=== PATIENT | female | born 1945 | race Caucasian/White ===

== ENCOUNTER 2019-05-22 10:15 | Observation (INO) ==
[2019-05-22 11:12] LABS: BUN/Creatinine Ratio 13 (6-26); Blood Urea Nitrogen 11 mg/dL (8-23); Calcium 8.9 mg/dL (8.6-10.3); Carbon Dioxide 28 mEq/L (23-29); Chloride 105 mEq/L (98-107); Glucose 122 mg/dL (70-105); Osmolality,Calculated 291 (280-300); Potassium 3.9 mEq/L (3.5-5.1); Sodium 140 mEq/L (136-145); eGFR For African Americans > 60 (> 60); eGFR For Non-African Americans > 60 (> 60)
[2019-05-22 11:13] LABS: Troponin I < 0.03 ng/mL (< 0.04)
[2019-05-22 11:24] LABS: Basophils # 0.1 K/mcL (0.0-0.2); Basophils % 0.4 %; Eosinophils # 0.1 K/mcL (0.0-0.6); Eosinophils % 0.6 %; Hematocrit 44.7 % (35.3-44.9); Hemoglobin 14.6 g/dL (11.5-15.4); Immature Granulocytes % 0.4 % (0-4); Lymphocytes # 1.1 K/mcL (0.6-4.6); Lymphocytes % 8.3 %; Mean Corpuscular HGB Conc 32.7 g/dL (31.6-35.5); Mean Corpuscular Hemoglobin 30.4 pg (28.0-33.3); Mean Corpuscular Volume 93.1 fL (83.0-100.0); Mean Platelet Volume 9.1 fL (9.4-12.4); Monocytes # 0.6 K/mcL (0.0-1.3); Monocytes % 4.5 %; Neutrophils # 11.5 K/mcL (1.6-8.9); Platelet Count 267 K/mcL (140-400); Red Cell Distribution Width 12.4 % (11.5-14.5); Segmented Neutrophils % 85.8 %; White Blood Count 13.4 K/mcL (4.3-11.1)
--- NOTE | 2019-05-22 11:36 | Emergency Department Note ---
Disposition Clinical Impression: Normal pressure hydrocephalus Disposition: Admitted As Inpatient Condition: Good Referrals: Gerald Peralta MD [Primary Care Provider] - Forms: ED Satisfaction Letter Time of Disposition: 16:04 Dizziness HPI - General Chief Complaint: ED Dizziness Stated Complaint: nausea vomiting Time Seen by Provider: 05/22/19 10:18 Source: patient, EMS Mode of arrival: EMS Limitations: no limitations Nursing Notes Reviewed: Yes Vital Signs Reviewed: Yes - History of Present Illness HPI Narrative: 73-year-old female with a past medical history of intermittent dizziness when she looks upward. Today she developed dizziness after she got up to go to the bathroom at 6 AM. She notes that today's episode of dizziness was different than her normal dizziness as normally she is only dizzy when she looks upward so she tries to avoid looking upward. Patient states that she became very nauseated all and decided that she should call the squad. Patient tried to take Phenergan and her thyroid medication but vomited both of these medications. Patient was given Zofran by squad which she states relieved her nausea. She states that any movement whatsoever exacerbates her dizziness. When asked if this is a lightheadedness or a room spinning dizziness she states that she simply feels like she will fall down. - Related Data Home Medications Medication Instructions Recorded Confirmed Cholecalciferol (D-3) [Vitamin D] 5,000 unit PO DAILY 10/18/16 05/22/19 Levothyroxine [Synthroid] 88 mcg PO DAILY 10/18/16 05/22/19 Omeprazole [PriLOSEC] 40 mg PO DAILY 10/18/16 05/22/19 SUMAtriptan succinate [Imitrex] 25 mg PO DAILY PRN 10/18/16 05/22/19 Meclizine 25 mg PO PRN PRN 05/22/19 05/22/19 Allergies Allergy/AdvReac Type Severity Reaction Status Date / Time influenza virus vaccine, Allergy See Verified 10/19/17 10:07 specific Comments Rsdnrew-Arn-Iij Reductase Allergy See Verified 10/19/17 10:07 Inhibitor Comments [Statins] Review of Systems: In addition to that documented in the HPI above, the additional ROS was obtained: Constitutional: Denies fevers or chills Eyes: Denies vision changes ENMT: Denies sore throat CV: Denies chest pain Resp: Denies SOB GI: Reports nausea and 1 episode of vomiting : Denies painful urination MSK: Denies recent trauma Skin: Denies new rashes Neuro: Reports dizziness different than normal dizziness Past Medical History - Past Medical History Attestation: Yes The following information was validated with the patient. Medical history: Reports: arthritis, GERD, hyperlipidemia, migraine, thyroid disease Surgical history: Reports: appendectomy, cataract Psychiatric history: Reports: no psych history - Social History Smoking Status: Never smoker Smokeless Tobacco Status: No Alcohol use: Reports: none Drug use: Reports: none Physical Exam General: A&O x 3. No acute distress. Well developed, well nourished. Head: atraumatic, normocephalic. ENT: No conjunctival injection, no scleral icterus. PERRLA. EOMI. Oropharynx non- erythematous. mucous membranes moist. Neuro: No focal deficits, no speech deficit, no facial droop, mentating well. BUE/BLE Str 5/5. Axel UE/LE sensation intact. CN II-XII intact. Cerebellar testing with eeawsg-cb-hxky and qkvh-bl-quim intact. HINTS exam showed mild correction of right eye with test of skew. Other components of HINTS exam were negative. Pulm: Lungs CTAB A/P. No wheezes, rales, ronchi. Cardio: RRR no m/r/g. Chest not tender to palpation. Abd: Soft, non-distended. Normoactive bowel sounds. Non-tender to palpation. No guarding. Non rigid. Extremities: Radial pulses 2+ axel, dorsalis pedis/posterior tibialis 2+ axel. No LE edema. No cyanosis, clubbing. Skin: warm, dry, intact. No rashes. Psych: Appropriate mood and affect. Answers questions appropriately. Cooperative with exam. - General Limitations: no limitations General appearance: alert, in no apparent distress Course Vital Signs Temperature 98.4 F 05/22/19 10:19 Pulse Rate 90 05/22/19 10:19 Respiratory Rate 20 05/22/19 10:19 Blood Pressure 168/88 05/22/19 10:19 O2 Sat by Pulse Oximetry 97 05/22/19 10:19 Temperature 98.4 F 05/22/19 10:19 Pulse Rate 92 05/22/19 15:16 Respiratory Rate 18 05/22/19 15:16 Blood Pressure 143/79 05/22/19 15:16 O2 Sat by Pulse Oximetry 96 05/22/19 15:16 Oxygen Delivery Oxygen Delivery Room Air Dizziness - MDM Narrative Medical decision making narrative: 73-year-old female with a past medical history of vertigo that presents for exacerbation of vertigo that started this morning when she got up to go to the bathroom. Concern for possible posterior infarction. Last known well is last evening before she went to bed. Patient's neurologic exam is nonfocal with the exception of mild findings with test of skew on his exam in the right eye. We will obtain head CT to rule out bleeding and then MRI. MRI showed findings consistent with normal pressure hydrocephalus. Patient continued to have nausea, she was given a dose of Phenergan. Neurology will be called. I spoke with Epi Dawkins from neurology who was made aware of the patient and stated that they will see her as an inpatient. Patient was admitted to the hospitalist Dr. Echeverria who agreed to accept the patient to his service. Results of the workup including any imaging and/or labwork was shared with the p atient at bedside. Patient was given an opportunity to ask questions at bedside and all of their concerns were addressed. Patient verbalized understanding and agreement with plan of care. Pt remained stable while in the department. - Medical Records Medical records reviewed: Yes I reviewed the patient's medical records. - Lab Data Lab results reviewed: Yes I reviewed the patient's lab results. Result diagrams: 05/22/19 10:41 05/22/19 10:41 Lab Results 05/22/19 05/22/19 05/22/19 Range/Units 10:41 10:41 10:41 WBC 13.4 H (4.3-11.1) K/mcL RBC 4.80 (3.82-4.97) M/mcL Hgb 14.6 (11.5-15.4) g/dL Hct 44.7 (35.3-44.9) % MCV 93.1 (83.0-100.0) fL MCH 30.4 (28.0-33.3) pg MCHC 32.7 (31.6-35.5) g/dL RDW 12.4 (11.5-14.5) % Plt Count 267 (140-400) K/mcL MPV 9.1 L (9.4-12.4) fL Immature Gran % 0.4 (0-4) % Seg Neutrophils % 85.8 % Lymphocytes % 8.3 % Monocytes % 4.5 % Eosinophils % 0.6 % Basophils % 0.4 % Neutrophils # 11.5 H (1.6-8.9) K/mcL Lymphocytes # 1.1 (0.6-4.6) K/mcL Monocytes # 0.6 (0.0-1.3) K/mcL Eosinophils # 0.1 (0.0-0.6) K/mcL Basophils # 0.1 (0.0-0.2) K/mcL Sodium 140 (136-145) mEq/L Potassium 3.9 (3.5-5.1) mEq/L Chloride 105 (98-107) mEq/L Carbon Dioxide 28 (23-29) mEq/L BUN 11 (8-23) mg/dL Creatinine 0.83 (0.60-1.20) mg/dL Est GFR ( Amer) > 60 (> 60) Est GFR (Non-Af Amer) > 60 (> 60) BUN/Creatinine Ratio 13 (6-26) Glucose 122 H (70-105) mg/dL Calculated Osmolality 291 (280-300) Calcium 8.9 (8.6-10.3) mg/dL Troponin I < 0.03 (< 0.04) ng/mL TSH 1.837 (0.340-5.600) mcIU/mL Urine Color (Yellow) Urine Clarity (Clear) Urine pH (5.0-8.0) pH Units Ur Specific [place] (1.010-1.025) Urine Protein (Neg-Trace) mg/dL Urine Glucose (UA) (Normal) mg/dL Urine Ketones (Negative) mg/dL Urine Blood (Negative) Urine Nitrite (Negative) Urine Bilirubin (Negative) Urine Urobilinogen (Normal) mg/dL Ur Leukocyte Esterase (Negative) Urine Microscopic RBC (0-3) per hpf Urine Microscopic WBC (0-3) per hpf Ur Squamous Epith Cells (None-Few) per lpf Urine Bacteria (None-Few) per hpf Hyaline Casts (None-Few) per lpf Ur Culture Indicated? (NO) 05/22/19 Range/Units 11:34 WBC (4.3-11.1) K/mcL RBC (3.82-4.97) M/mcL Hgb (11.5-15.4) g/dL Hct (35.3-44.9) % MCV (83.0-100.0) fL MCH (28.0-33.3) pg MCHC (31.6-35.5) g/dL RDW (11.5-14.5) % Plt Count (140-400) K/mcL MPV (9.4-12.4) fL Immature Gran % (0-4) % Seg Neutrophils % % Lymphocytes % % Monocytes % % Eosinophils % % Basophils % % Neutrophils # (1.6-8.9) K/mcL Lymphocytes # (0.6-4.6) K/mcL Monocytes # (0.0-1.3) K/mcL Eosinophils # (0.0-0.6) K/mcL Basophils # (0.0-0.2) K/mcL Sodium (136-145) mEq/L Potassium (3.5-5.1) mEq/L Chloride (98-107) mEq/L Carbon Dioxide (23-29) mEq/L BUN (8-23) mg/dL Creatinine (0.60-1.20) mg/dL Est GFR ( Amer) (> 60) Est GFR (Non-Af Amer) (> 60) BUN/Creatinine Ratio (6-26) Glucose (70-105) mg/dL Calculated Osmolality (280-300) Calcium (8.6-10.3) mg/dL Troponin I (< 0.04) ng/mL TSH (0.340-5.600) mcIU/mL Urine Color Yellow (Yellow) Urine Clarity Clear (Clear) Urine pH 7.5 (5.0-8.0) pH Units Ur Specific [place] 1.016 (1.010-1.025) Urine Protein 30 H (Neg-Trace) mg/dL Urine Glucose (UA) Normal (Normal) mg/dL Urine Ketones Negative (Negative) mg/dL Urine Blood Negative (Negative) Urine Nitrite Negative (Negative) Urine Bilirubin Negative (Negative) Urine Urobilinogen Normal (Normal) mg/dL Ur Leukocyte Esterase Trace H (Negative) Urine Microscopic RBC 3-5 H (0-3) per hpf Urine Microscopic WBC 3-5 H (0-3) per hpf Ur Squamous Epith Cells Many H (None-Few) per lpf Urine Bacteria None Seen (None-Few) per hpf Hyaline Casts None Seen (None-Few) per lpf Ur Culture Indicated? YES A (NO) - Radiology Data Radiology results reviewed: Yes I reviewed the patient's radiology results. Head CT 05/22/19 10:32 IMPRESSION: 1. Parenchymal volume loss and sequela of moderate chronic microvascular ischemic changes. 2. Ventriculomegaly which is out of proportion to the degree of brain parenchymal volume loss, raise the possibility of normal pressure hydrocephalus. D/ / Sandi Bowling MD / Sandi Bowling MD Interpreting Provider: Sandi Bowling MD Brain MRI 05/22/19 11:41 IMPRESSION: 1. No acute intracranial abnormality. 2. Moderate chronic white matter microvascular ischemic changes. 3. Ventriculomegaly disproportionate to the degree of parenchymal volume loss as can be seen in the setting of normal pressure hydrocephalus. D/ / Connor Leggett / Connor Leggett Interpreting Provider: Connor Leggett - EKG Data EKG attestation: Yes I reviewed and interpreted this EKG. EKG results narrative: Heart rate 74, rhythm sinus, axis normal. DC 206 and prolonged, QRS 96, QTc 456. Low voltage in precordial leads. No ST segment elevation or depression. No old EKG available for comparison.
[2019-05-22] MEDS ORDERED: Scopolamine Patch 1.5 MG PATCH.TD72 TD ONE (11:41)
[2019-05-22] MEDS ORDERED: *HR* LORazepam 2 MG/ML VIAL IVP ONE (11:41)
[2019-05-22 11:49] LABS: Bilirubin,Urine Negative (Negative); Blood,Urine Negative (Negative); Clarity,Urine Clear (Clear); Color,Urine Yellow (Yellow); Glucose,Urine (UA) Normal (Normal); Ketones,Urine Negative (Negative); Leukocyte Esterase,Urine Trace (Negative); Nitrite,Urine Negative (Negative); PH,Urine 7.5 pH Units (5.0-8.0); Protein,Urine 30 mg/dL (Neg-Trace); Specific Gravity,Urine 1.016 (1.010-1.025); Urobilinogen,Urine Normal (Normal)
[2019-05-22 11:53] LABS: Bacteria,Urine None Seen per hpf (None-Few); Hyaline Casts,Urine None Seen per lpf (None-Few); Squamous Epithelial Cell,Urine Many per lpf (None-Few)
[2019-05-22] MEDS ORDERED: *HR* Promethazine 25 MG/ML VIAL IVP ONE (13:38)
--- NOTE | 2019-05-22 15:18 | Emergency Department Note ---
Disposition Clinical Impression: Normal pressure hydrocephalus Disposition: Admitted As Inpatient Condition: Good Referrals: Gerald Peralta MD [Primary Care Provider] - Forms: ED Satisfaction Letter Time of Disposition: 15:18 General Adult HPI - General Chief complaint: ED Dizziness Stated complaint: nausea vomiting Time Seen by Provider: 05/22/19 10:18 Source: patient, EMS Mode of arrival: EMS Limitations: no limitations - History of Present Illness Pain Scale: 0 - Related Data Home Medications Medication Instructions Recorded Confirmed Cholecalciferol (D-3) [Vitamin D] 5,000 unit PO DAILY 10/18/16 05/22/19 Levothyroxine [Synthroid] 88 mcg PO DAILY 10/18/16 05/22/19 Omeprazole [PriLOSEC] 40 mg PO DAILY 10/18/16 05/22/19 SUMAtriptan succinate [Imitrex] 25 mg PO DAILY PRN 10/18/16 05/22/19 Meclizine 25 mg PO PRN PRN 05/22/19 05/22/19 Allergies Allergy/AdvReac Type Severity Reaction Status Date / Time influenza virus vaccine, Allergy See Verified 10/19/17 10:07 specific Comments Hqkjqzm-Npj-Wcr Reductase Allergy See Verified 10/19/17 10:07 Inhibitor Comments [Statins] Past Medical History - Past Medical History Medical history: Reports: arthritis, GERD, hyperlipidemia, migraine, thyroid disease Surgical history: Reports: appendectomy, cataract Psychiatric history: Reports: no psych history - Social History Smoking Status: Never smoker Smokeless Tobacco Status: No Alcohol use: Reports: none Drug use: Reports: none Physical Exam - General Limitations: no limitations General appearance: alert, in no apparent distress Course Vital Signs Temperature 98.4 F 05/22/19 10:19 Pulse Rate 90 05/22/19 10:19 Respiratory Rate 20 05/22/19 10:19 Blood Pressure 168/88 05/22/19 10:19 O2 Sat by Pulse Oximetry 97 05/22/19 10:19 Temperature 98.4 F 05/22/19 10:19 Pulse Rate 92 05/22/19 15:16 Respiratory Rate 18 05/22/19 15:16 Blood Pressure 143/79 05/22/19 15:16 O2 Sat by Pulse Oximetry 96 05/22/19 15:16 Oxygen Delivery Oxygen Delivery Room Air Medical Decision Making - Lab Data Result diagrams: 05/22/19 10:41 05/22/19 10:41 Lab Results 05/22/19 05/22/19 05/22/19 Range/Units 10:41 10:41 10:41 WBC 13.4 H (4.3-11.1) K/mcL RBC 4.80 (3.82-4.97) M/mcL Hgb 14.6 (11.5-15.4) g/dL Hct 44.7 (35.3-44.9) % MCV 93.1 (83.0-100.0) fL MCH 30.4 (28.0-33.3) pg MCHC 32.7 (31.6-35.5) g/dL RDW 12.4 (11.5-14.5) % Plt Count 267 (140-400) K/mcL MPV 9.1 L (9.4-12.4) fL Immature Gran % 0.4 (0-4) % Seg Neutrophils % 85.8 % Lymphocytes % 8.3 % Monocytes % 4.5 % Eosinophils % 0.6 % Basophils % 0.4 % Neutrophils # 11.5 H (1.6-8.9) K/mcL Lymphocytes # 1.1 (0.6-4.6) K/mcL Monocytes # 0.6 (0.0-1.3) K/mcL Eosinophils # 0.1 (0.0-0.6) K/mcL Basophils # 0.1 (0.0-0.2) K/mcL Sodium 140 (136-145) mEq/L Potassium 3.9 (3.5-5.1) mEq/L Chloride 105 (98-107) mEq/L Carbon Dioxide 28 (23-29) mEq/L BUN 11 (8-23) mg/dL Creatinine 0.83 (0.60-1.20) mg/dL Est GFR ( Amer) > 60 (> 60) Est GFR (Non-Af Amer) > 60 (> 60) BUN/Creatinine Ratio 13 (6-26) Glucose 122 H (70-105) mg/dL Calculated Osmolality 291 (280-300) Calcium 8.9 (8.6-10.3) mg/dL Troponin I < 0.03 (< 0.04) ng/mL TSH 1.837 (0.340-5.600) mcIU/mL Urine Color (Yellow) Urine Clarity (Clear) Urine pH (5.0-8.0) pH Units Ur Specific [place] (1.010-1.025) Urine Protein (Neg-Trace) mg/dL Urine Glucose (UA) (Normal) mg/dL Urine Ketones (Negative) mg/dL Urine Blood (Negative) Urine Nitrite (Negative) Urine Bilirubin (Negative) Urine Urobilinogen (Normal) mg/dL Ur Leukocyte Esterase (Negative) Urine Microscopic RBC (0-3) per hpf Urine Microscopic WBC (0-3) per hpf Ur Squamous Epith Cells (None-Few) per lpf Urine Bacteria (None-Few) per hpf Hyaline Casts (None-Few) per lpf Ur Culture Indicated? (NO) 05/22/19 Range/Units 11:34 WBC (4.3-11.1) K/mcL RBC (3.82-4.97) M/mcL Hgb (11.5-15.4) g/dL Hct (35.3-44.9) % MCV (83.0-100.0) fL MCH (28.0-33.3) pg MCHC (31.6-35.5) g/dL RDW (11.5-14.5) % Plt Count (140-400) K/mcL MPV (9.4-12.4) fL Immature Gran % (0-4) % Seg Neutrophils % % Lymphocytes % % Monocytes % % Eosinophils % % Basophils % % Neutrophils # (1.6-8.9) K/mcL Lymphocytes # (0.6-4.6) K/mcL Monocytes # (0.0-1.3) K/mcL Eosinophils # (0.0-0.6) K/mcL Basophils # (0.0-0.2) K/mcL Sodium (136-145) mEq/L Potassium (3.5-5.1) mEq/L Chloride (98-107) mEq/L Carbon Dioxide (23-29) mEq/L BUN (8-23) mg/dL Creatinine (0.60-1.20) mg/dL Est GFR ( Amer) (> 60) Est GFR (Non-Af Amer) (> 60) BUN/Creatinine Ratio (6-26) Glucose (70-105) mg/dL Calculated Osmolality (280-300) Calcium (8.6-10.3) mg/dL Troponin I (< 0.04) ng/mL TSH (0.340-5.600) mcIU/mL Urine Color Yellow (Yellow) Urine Clarity Clear (Clear) Urine pH 7.5 (5.0-8.0) pH Units Ur Specific [place] 1.016 (1.010-1.025) Urine Protein 30 H (Neg-Trace) mg/dL Urine Glucose (UA) Normal (Normal) mg/dL Urine Ketones Negative (Negative) mg/dL Urine Blood Negative (Negative) Urine Nitrite Negative (Negative) Urine Bilirubin Negative (Negative) Urine Urobilinogen Normal (Normal) mg/dL Ur Leukocyte Esterase Trace H (Negative) Urine Microscopic RBC 3-5 H (0-3) per hpf Urine Microscopic WBC 3-5 H (0-3) per hpf Ur Squamous Epith Cells Many H (None-Few) per lpf Urine Bacteria None Seen (None-Few) per hpf Hyaline Casts None Seen (None-Few) per lpf Ur Culture Indicated? YES A (NO) Attestation Statement - Attestation Attestation: I reviewed the residents documentation and agree with the residents assessment and plan of care. I have personally had face to face time with the patient. (Brief History, Brief Exam, and MDM) I personally supervised and was present for the paredes/critical portions of the following procedures completed by the resident: (add procedures performed here). 73 year old female presentsto the ED with complaints of vertigo syptoms and N/V with intermittent incontinence issues a few weeks ago that have now resolved and ambulation problems. MRI shows NPH and we have given mutliple therapes for peripheral vertigo withotu relief and she is now havign difficutly even sitting up with becoming symptomatic. We discussed case with neurology who will see her in consult and admit to medicine.
--- NOTE | 2019-05-22 15:19 | Electrocardiograph Report ---
[address] [id number] Test Date: 2019-05-22 Pat Name: Ericka Dumont Department: [id number] Room: Gender: F Engineer First Assistant: : 1945 Requested By: Sandra Izaguirre Order Number: [id number] Reading MD: Arthur Kaplan Measurements Intervals [place] Rate: 74 P: 53 NC: 206 QRS: 36 QRSD: 96 T: 57 QT: 411 QTc: 456 Interpretive Statements Sinus rhythm Low voltage, precordial leads Electronically Signed On 05-22-2019 15:17:42 EDT by Arthur Kaplan
[2019-05-22] MEDS ORDERED: Isovue-370 500 ML BOTTLE IVP ONE (16:04)
--- NOTE | 2019-05-22 16:23 | Neurology - Consult Note ---
<Epi Dawkins J - Last Filed: 05/22/19 16:13> Date of Encounter: 05/22/19 Time of Encounter: 16:13 Assessment and Plan (1) Normal pressure hydrocephalus Current Visit: Yes Status: Acute Neurology c/s by ED physician with concerns for NPH Patient denies any urinary incontinence, family and patient deny confusion for altered mental state and they deny magnetic gait One would expect her to have a component of the difficulty, altered mental state and/or urinary incontinence is virtually diagnosis of normal pressure hydrocephalus. I do agree that the MRI findings does show ventricular enlargement but this may be related to the atrophic changes also seen on MRI We are not recommending large-volume drain at this time See further plan of care above (2) VBI (vertebrobasilar insufficiency) Current Visit: Yes Status: Acute Presents with symptoms of dizziness, nausea, vomiting, diplopia Diplopia has resolved, dizziness nausea and vomiting persists MRI of the brain obtained with concerns for posterior stroke; MRI shows no acute ischemic changes specifically no stroke, moderate chronic white matter microvascular ischemic changes seen. Ventriculomegaly also seen. No prior neuroimaging for comparison; consider sequestering previous neuroimaging from outside medical facility In regards to the ventriculomegaly there is low suspicion for NPH the patient denies urinary incontinence, altered mental status and magnetic gait TSH 1.837, UA benign appearing with trace leukocyte esterase EKG with NSR, troponin negative Neurologically she is intact without any focal or lateralizing findings specifically, there are no vestibular findings on exam. Diplopia has resolved. Symptoms are consistent with vertebrobasilar insufficiency therefore we will further evaluate with CT angiogram of head and neck Further recommendations pending workup Continue with anti-emetics if they seem to be helping Neurology will continue to follow History of Present Illness Chief complaint: DIZZINESS, NAUSEA, VOMITING R/O VBI HPI: Ms. Dumont is a 73 year old female with a PMH of arthritis, GERD, HLD, migraines and thyroid disease. Additionally, she is reporting a history of chronic dizziness with head positioning. She reports to [facility] ED today with concerns of dizziness, nausea and vomiting. The patient reports that approximately 6 AM while walking to go to the restroom she began to feel extremely weak all over causing her to catch herself against receiving to maintain balance. With this weakness she began to experience dizziness and nausea and vomiting. The nausea and vomiting did not subside and as such she presented to [facility] for further evaluation. She admits to associated symptoms of diplopia. However, she denies any focal weakness, paresthesias, sensory changes, dysphagia, dysarthria, headaches, head/neck pain or stiffness, chest pain, dyspnea, palpitations, peripheral edema, fevers, chills, joint aches or pains, weight loss, night sweats, dysuria, incontinence, seizure-like activity. In the time of my assessments afternoon she notes that the dizziness persists but has improved somewhat with a combination of Benadryl and Phenergan. She denies any room spinning quality to the dizziness and I was unable to reproduce this on exam. A CT that was completed in the ED showing parenchymal volume loss and squamous of moderate chronic microvascular ischemic changes and ventriculomegaly. MRI of the brain showed no acute intracranial abnormality, specifically no acute stroke, there is moderate chronic white matter microvascular ischemic changes. There is also findings of ventriculomegaly. Vital signs have been reviewed and she was found a mildly hypertensive on arrival with blood pressure 168/88. Mild leukocytosis seen on CBC. His most likely reactionary. Cancer panel within expected range the exception of an elevated glucose of 122. Urinalysis showing trace leukocyte esterase but otherwise is benign appearing. Past Med Surg Social Fam HX - Past Medical History Medical history: arthritis, GERD, hyperlipidemia, migraine, thyroid disease Additional medical history: Vertigo Psychiatric history: no psych history - Past Surgical History Surgical History: appendectomy, cataract Additional surgical history: Left and Right Hand sx. Excision melanoma abdomen - Social History Smoking Status: Never smoker Smokeless Tobacco Status: No Alcohol use: none Drug use: none - Additional Family History Additional family history: Patient does not know father and is unaware of father's history. Denies any family history of brothers or sisters. Patient's mother did not have any health complications. All family history reviewed with the patient and found to be unremarkable with no pertinent information which would contribute to the patient's current diagnosis Medications and Allergies Cholecalciferol (D-3) [Vitamin D] 5,000 unit PO DAILY 10/18/16 [History] Levothyroxine [Synthroid] 88 mcg PO QAM 10/18/16 [History] Omeprazole [PriLOSEC] 40 mg PO DAILY 10/18/16 [History] Albuterol Sulfate [Ventolin Hfa] 2 puff IH Q4H 05/22/19 [History] Colesevelam [Welchol] 1,875 mg PO BIDWM 05/22/19 [History] Meclizine HCl [Verticalm] 25 mg PO DAILY PRN 05/22/19 [History] SUMAtriptan Succinate [Imitrex] 100 mg PO DAILY PRN 05/22/19 [History] Allergy/AdvReac Type Severity Reaction Status Date / Time influenza virus vaccine, Allergy See Verified 10/19/17 10:07 specific Comments Wyvbpii-Bis-Pek Reductase Allergy See Verified 10/19/17 10:07 Inhibitor Comments [Statins] All Systems: The remainder of the systems were reviewed and are negative Review of Systems: REVIEW OF SYSTEMS GENERAL: Negative for any nausea, vomiting, fevers, chills, or weight loss, fatigue NEUROLOGIC: Negative for any blurry vision, blind spots, double vision, facial asymmetry, dysphagia, dysarthria, hemiparesis, hemisensory deficits, vertigo, ataxia, seizures, paralysis, tingling, numbness, unilateral weakness or numb ness/tingling Positive-Dizziness PSYCH: agitation/irritability, delirium or confusion HEENT: Negative for any head trauma, neck trauma, neck stiffness, photophobia, phonophobia. CARDIAC: Negative for any chest pain, dyspnea, peripheral edema, or palpitations PULMONARY: Negative for any shortness of breath, wheezing GASTROINTESTINAL: Negative for any abdominal pain Positive- nausea, vomiting GENITOURINARY: Negative for any dysuria, incontinence ENDOCRINE: Thyroid trouble, heat/cold intolerance, excessive sweating MUSCULOSKELETAL: Negative- Joint pain, stiffness, loss of strength The remainder of the review of systems reviewed and found to be negative Physical Examination - Vital Signs Vital Signs: Initial Vital Signs Temp Pulse Resp BP Pulse Ox 98.4 F 90 20 168/88 97 05/22/19 10:19 05/22/19 10:19 05/22/19 10:19 05/22/19 10:05/22/19 10:19 - Exam Exam: Examination: General Examination: *CONSTITUTIONAL: Alert and oriented x3, no acute distress *GENERAL APPEARANCE OF PATIENT elderly female who appears healthy and well groomed *EYES: pupils equal, round, reactive to light and accommodation, conjunctiva clear without masses or ulcerations, fundi normal. *CARDIOVASCULAR: no peripheral edema, distal temperature normal, dorsalis pedis pulses normal. Refer to vital signs * MUSCULOSKELETAL: *GAIT AND STATION: Deferred d/t weakness *ASSESSMENT OF MUSCLE STRENGTH IN THE UPPER AND LOWER EXTREMITIES bilateral deltoid, bicep, tricep, certified master safecracker strength, hip flexors ,anterior tibialis, dorsoflexion of the foot 4/5 *MUSCLE TONE IN THE UPPER AND LOWER EXTREMITIES normal. No abnormal movements, fasciculations or atrophy identified. Neurological: *ORIENTATION to person, situation, time and place *LANGUAGE AND FUNCTION no significant aphasia or dysarthia was noted. *ATTENTION AND CONCENTRATION are normal *LANGUAGE FUNCTION no significant aphasia or dysarthia was noted. *FUND OF KNOWLEDGE aware of current events, past history, vocabulary *MENTAL attention span and concentration normal. *CN II optic fundi were normal, no papilledema noted. *CN III,IV, PERRLA extraocular eye movements were full, no nystagmus and no ptosis noted. *CN V shows normal sensation and jaw opens symmetrically. *CN VII shows normal facial movement symmetrically, upper and lower bilaterally. *CN VIII shows no significant hearing loss on exam *CN IX-X palate elevated symmetrically *CN XI normal strength in the sternocleidomastoid muscles, symmetrical shoulder shrugging. *CN XII tongue protruded in the midline, with normal strength and movement. *SENSORY EXAMINATION light touch intact *REFLEXES: deep tendon reflexes were normal and symmetrical , grade 2/4 diffusely, no pathological reflexes were noted. *CEREBELLAR TESTING normal finger to nose, heel/knee/ramirez *PAIN LEVEL 0/10 Results - Laboratory Findings CBC and BMP: 05/22/19 10:41 05/22/19 10:41 Abnormal lab findings: Abnormal lab results WBC 13.4 K/mcL (4.3-11.1) H 05/22/19 10:41 MPV 9.1 fL (9.4-12.4) L 05/22/19 10:41 Neutrophils # 11.5 K/mcL (1.6-8.9) H 05/22/19 10:41 Glucose 122 mg/dL (70-105) H 05/22/19 10:41 Urine Protein 30 mg/dL (Neg-Trace) H 05/22/19 11:34 Ur Leukocyte Esterase Trace (Negative) H 05/22/19 11:34 Urine Microscopic RBC 3-5 per hpf (0-3) H 05/22/19 11:34 Urine Microscopic WBC 3-5 per hpf (0-3) H 05/22/19 11:34 Ur Squamous Epith Cells Many per lpf (None-Few) H 05/22/19 11:34 Ur Culture Indicated? YES (NO) A 05/22/19 11:34 - Diagnostic Findings Additional findings: CT/CT head/brain wo con IMPRESSION: 1. Parenchymal volume loss and sequela of moderate chronic microvascular ischemic changes. 2. Ventriculomegaly which is out of proportion to the degree of brain parenchymal volume loss, raise the possibility of normal pressure hydrocephalus. MR/MR head/brain wo con IMPRESSION: 1. No acute intracranial abnormality. 2. Moderate chronic white matter microvascular ischemic changes. 3. Ventriculomegaly disproportionate to the degree of parenchymal volume loss as can be seen in the setting of normal pressure hydrocephalus. Consult Discharge Plan - Plan <Romero Stockton - Last Filed: 05/22/19 17:49> Date of Encounter: 05/22/19 Assessment and Plan (1) Normal pressure hydrocephalus Current Visit: Yes Status: Acute (2) VBI (vertebrobasilar insufficiency) Current Visit: Yes Status: Acute I have personally performed a [id number] assessment of the patient and have reviewed the PA/CORD SPLICER note. My impressions are as follows: I agree with the assessment and plan as documented above by the MATERIALS ANALYST. The MRI scan of the brain reveals no evidence of acute ischemia in the posterior fossa, CTA scan of the head and neck reveal no evidence of impending occlusion of any of the vessels of the posterior fossa. I am suspicious that her sudden dizziness may be of peripheral etiologies i.e. labyrinthine. She did not lose consciousness. I will reevaluate her in the morning. History of Present Illness HPI: Chart was reviewed, patient was seen and examined independently. Multiple family members were present. Case was discussed with Epi. I agree with his assessment of the history of present illness as documented above. I did personally review the MRI scan of the brain. She does have a significant amount of cortical atrophy with compensatory ventricular dilatation. CTA scans of the head and neck did not reveal evidence of stenosis of any vessel. Vertebral arteries are codominant without any evidence of dissection. All Systems: The remainder of the systems were reviewed and are negative Review of Systems: The balance of the systems review is negative. Physical Examination - Vital Signs Vital Signs: Initial Vital Signs Temp Pulse Resp BP Pulse Ox 98.4 F 90 20 168/88 97 05/22/19 10:19 05/22/19 10:19 05/22/19 10:19 05/22/19 10:05/22/19 10:19 - Exam Exam: I have personally performed a [id number] assessment of the patient and have reviewed the PA/CORD SPLICER note. My impressions are as follows: I agree with the neurologic examination is documented above. Results - Laboratory Findings CBC and BMP: 05/22/19 10:41 05/22/19 10:41 Abnormal lab findings: Abnormal lab results WBC 13.4 K/mcL (4.3-11.1) H 05/22/19 10:41 MPV 9.1 fL (9.4-12.4) L 05/22/19 10:41 Neutrophils # 11.5 K/mcL (1.6-8.9) H 05/22/19 10:41 Glucose 122 mg/dL (70-105) H 05/22/19 10:41 Urine Protein 30 mg/dL (Neg-Trace) H 05/22/19 11:34 Ur Leukocyte Esterase Trace (Negative) H 05/22/19 11:34 Urine Microscopic RBC 3-5 per hpf (0-3) H 05/22/19 11:34 Urine Microscopic WBC 3-5 per hpf (0-3) H 05/22/19 11:34 Ur Squamous Epith Cells Many per lpf (None-Few) H 05/22/19 11:34 Ur Culture Indicated? YES (NO) A 05/22/19 11:34
[2019-05-22] MEDS ORDERED: Aspirin 325 MG TABLET PO STA (17:18)
[2019-05-22] MEDS ORDERED: Naloxone 0.4 MG/ML INJ IVP PRN (17:29)
[2019-05-22] MEDS ORDERED: *HR* Promethazine 25 MG/ML VIAL IVP PRN (17:32)
--- NOTE | 2019-05-22 17:46 | Internal Med History&Physical ---
Date of Encounter: 05/22/19 Time of Encounter: 18:18 Internal Medicine - H&P: HPI Chief complaint: Severe dizziness this am History of present illness: Ms. Dumont is a 73 year old female with pmh of hypothyroidism, dyslipidemia presenting with complaints of severe dizziness this am and feeling like she was going to pass out. Patients says she has had chronic dizziness in the past but nothing to this severity. She got up at 6.30 am to use the bathroom and on walking a few feet she immediately felt like she was going to black out. She had to be helped to her feet by her as she could barely support her own weight. She was able to walk back to her bed and has been feeling persistently dizzy since. Particularly when sitting upright or standing up. She denies any sensation of the room spinning around her . She denies any fevers or chills or shortness of breath. Denies any sick contacts. She denies any urinary incontinence In the ER, She had an MRI done showing findings suggestive of normal pressure hydrocephalus. She is being admitted for further management Past Med Surg Social Fam HX - Past Medical History Medical history: arthritis, GERD, hyperlipidemia, migraine, thyroid disease Additional medical history: Vertigo Psychiatric history: no psych history - Past Surgical History Surgical History: appendectomy, cataract Additional surgical history: Left and Right Hand sx. Excision melanoma abdomen - Social History Smoking Status: Never smoker Smokeless Tobacco Status: No Alcohol use: none Drug use: none Internal Medicine - H&P: Meds Cholecalciferol (D-3) [Vitamin D] 5,000 unit PO DAILY 10/18/16 [History] Levothyroxine [Synthroid] 88 mcg PO QAM 10/18/16 [History] Omeprazole [PriLOSEC] 40 mg PO DAILY 10/18/16 [History] Albuterol Sulfate [Ventolin Hfa] 2 puff IH Q4H 05/22/19 [History] Colesevelam [Welchol] 1,875 mg PO BIDWM 05/22/19 [History] Meclizine HCl [Verticalm] 25 mg PO DAILY PRN 05/22/19 [History] SUMAtriptan Succinate [Imitrex] 100 mg PO DAILY PRN 05/22/19 [History] Allergy/AdvReac Type Severity Reaction Status Date / Time influenza virus vaccine, Allergy See Verified 10/19/17 10:07 specific Comments Sdbjhje-Mpa-Wdo Reductase Allergy See Verified 10/19/17 10:07 Inhibitor Comments [Statins] All Systems PM: A 10-system review of systems was performed and is negative for pertinent findings except as documented above in the HPI. - Constitutional Constitutional: no chills, no fever(s), no night sweats - EENT Eyes: no change in vision, no discharge, no pain, no photophobia Ears: no ear discharge, no ear pain, no tinnitus Nose, mouth and throat: no dysphagia, no nasal discharge, no neck pain, no sore throat - Cardiovascular Cardiovascular ROS IM: no chest pain, no diaphoresis, no dyspnea, no lightheadedness, no palpitations, no syncope - Respiratory Respiratory: no cough, no dyspnea, no wheezing, no excessive phlegm production - Gastrointestinal Gastrointestinal: no abdominal pain, no diarrhea, no hematemesis, no hematochezia, no melena, no nausea, no vomiting - Genitourinary Genitourinary: no change in urinary stream, no dysuria, no flank pain, no hematuria - Musculoskeletal Musculoskeletal ROS IM: no numbness, no tingling - Integumentary Integumentary IM: no rash, no unusual bruising - Neurological Neurological ROS: disequilibrium, dizziness, no confusion, no convulsions, no focal weakness, no numbness, no tingling, no tremor(s) - Hematologic/Lymphatic Hematologic/Lymphatic: no easy bruising - Constitutional Vitals: Temp Pulse Resp BP Pulse Ox 98.4 F 92 18 143/79 96 05/22/19 10:19 05/22/19 15:16 05/22/19 15:16 05/22/19 15:16 05/22/19 15:16 Exam: NAD - Head Head exam: Present: atraumatic, normocephalic - Eye Eye exam: Present: PERRL, conjuntiva pink, sclera anicteric Pupils: Present: PERRL - Neck Neck exam general surgery: Present: supple, trachea midline. Absent: lymphadenopathy - Respiratory Respiratory exam: Present: CTAB. Absent: accessory muscle use, rales, rhonchi, wheezes - Cardiovascular Cardiovascular exam: Present: RRR, +S1, +S2. Absent: diastolic murmur, gallop, rubs, systolic murmur - GI/Abdominal GI/Abdominal exam: Present: normal bowel sounds, soft, no peritoneal signs. Absent: distended, tenderness - Extremities Exam Extremities exam: Present: warm, radial pulses palpable and symmetrical. Absent: calf tenderness, cyanotic, pedal edema - Neurological Exam Neurological exam: Present: CN II-XII intact, oriented X3, no focal deficits. Absent: pronater drift, facial droop, speech deficit - Skin Skin exam: Present: dry, intact Internal Med - H&P Results - Labs CBC & Chem 7: 05/22/19 10:41 05/22/19 10:41 Labs: Short CBC 05/22/19 Range/Units 10:41 WBC 13.4 H (4.3-11.1) K/mcL Hgb 14.6 (11.5-15.4) g/dL Hct 44.7 (35.3-44.9) % Plt Count 267 (140-400) K/mcL Neutrophils # 11.5 H (1.6-8.9) K/mcL BMP 05/22/19 10:41 Sodium 140 Potassium 3.9 Chloride 105 Carbon Dioxide 28 BUN 11 Creatinine 0.83 Glucose 122 H Calcium 8.9 Cardiac Enzymes 05/22/19 Range/Units 10:41 Troponin I < 0.03 (< 0.04) ng/mL Urine 05/22/19 Range/Units 11:34 Urine Color Yellow (Yellow) Urine Clarity Clear (Clear) Urine pH 7.5 (5.0-8.0) pH Units Ur Specific [place] 1.016 (1.010-1.025) Urine Protein 30 H (Neg-Trace) mg/dL Urine Glucose (UA) Normal (Normal) mg/dL - Impressions ITS Impressions Head CT 05/22/19 10:32 IMPRESSION: 1. Parenchymal volume loss and sequela of moderate chronic microvascular ischemic changes. 2. Ventriculomegaly which is out of proportion to the degree of brain parenchymal volume loss, raise the possibility of normal pressure hydrocephalus. D/ / Sandi Bowling MD / Sandi Bowling MD Interpreting Provider: Sandi Bowling MD Brain MRI 05/22/19 11:41 IMPRESSION: 1. No acute intracranial abnormality. 2. Moderate chronic white matter microvascular ischemic changes. 3. Ventriculomegaly disproportionate to the degree of parenchymal volume loss as can be seen in the setting of normal pressure hydrocephalus. D/ / Connor Leggett / Connor Leggett Interpreting Provider: Connor Leggett Head CTA 05/22/19 16:04 IMPRESSION: 1. No acute arterial abnormality or hemodynamically significant arterial stenosis in the head or neck. 2. Mild emphysema. 3. Subcentimeter incidental thyroid nodules likely benign are. No follow-up imaging is recommended. Reference: J Am Matthew Radiol. 2014;12(2): 143-50 D/ / Connor Leggett / Connor Leggett Interpreting Provider: Connor Leggett Neck CTA 05/22/19 16:04 IMPRESSION: 1. No acute arterial abnormality or hemodynamically significant arterial stenosis in the head or neck. 2. Mild emphysema. 3. Subcentimeter incidental thyroid nodules likely benign are. No follow-up imaging is recommended. Reference: J Am Matthew Radiol. 2014;12(2): 143-50 D/ / Connor Leggett / Connor Leggett Interpreting Provider: Connor Leggett - Assessment and Plan (1) Syncope and collapse Current Visit: Yes Status: Acute Assessment and plan: Pt comes in with syncopal episode this am with persistent dizziness Unclear etiology. MRI shows normal pressure hydrocephalus. CTA head shows no s tenosis Will obtain orthostatics, start on IV fluids. Neurology consulted and recs appreciated (2) Normal pressure hydrocephalus Current Visit: Yes Status: Acute Assessment and plan: See #1 (3) Dyslipidemia Current Visit: Yes Status: Acute Assessment and plan: Resume home meds (4) Hypothyroidism Current Visit: Yes Status: Acute Assessment and plan: Resume levothyroxine Qualifiers: Qualified Code(s): E03.9 - Hypothyroidism, unspecified (5) DVT prophylaxis Current Visit: Yes Status: Acute Assessment and plan: Heparin sc - Time Spent With Patient Total time spent is greater than 50% in coordination of care (as documented) at patient's floor/unit and/or counseling patient:
[2019-05-22] MEDS: 0.9 % Sodium Chloride 1,000 ML IVC SCH (20:31)
[2019-05-22] MEDS: SUMAtriptan succinate 50 MG TABLET PO PRN (20:31)
[2019-05-23 06:16] LABS: Basophils # 0.1 K/mcL (0.0-0.2); Basophils % 0.6 %; Eosinophils # 0.2 K/mcL (0.0-0.6); Eosinophils % 2.2 %; Hematocrit 43.3 % (35.3-44.9); Hemoglobin 14.1 g/dL (11.5-15.4); Immature Granulocytes % 0.8 % (0-4); Lymphocytes # 1.8 K/mcL (0.6-4.6); Lymphocytes % 17.1 %; Mean Corpuscular HGB Conc 32.6 g/dL (31.6-35.5); Mean Corpuscular Hemoglobin 30.3 pg (28.0-33.3); Mean Corpuscular Volume 93.1 fL (83.0-100.0); Mean Platelet Volume 9.2 fL (9.4-12.4); Monocytes # 0.9 K/mcL (0.0-1.3); Monocytes % 8.7 %; Neutrophils # 7.5 K/mcL (1.6-8.9); Platelet Count 269 K/mcL (140-400); Red Blood Count 4.65 M/mcL (3.82-4.97); Red Cell Distribution Width 12.6 % (11.5-14.5); Segmented Neutrophils % 70.6 %; White Blood Count 10.6 K/mcL (4.3-11.1)
[2019-05-23 06:30] LABS: BUN/Creatinine Ratio 14 (6-26); Blood Urea Nitrogen 12 mg/dL (8-23); Calcium 9.2 mg/dL (8.6-10.3); Carbon Dioxide 29 mEq/L (23-29); Chloride 106 mEq/L (98-107); Glucose 98 mg/dL (70-105); Magnesium 2.4 mg/dL (1.6-2.6); Osmolality,Calculated 298 (280-300); Phosphorous 3.6 mg/dL (2.7-4.5); Sodium 144 mEq/L (136-145); eGFR For African Americans > 60 (> 60); eGFR For Non-African Americans > 60 (> 60)
[2019-05-23] MEDS: 0.9 % Sodium Chloride 1,000 ML IVC SCH (06:41)
--- NOTE | 2019-05-23 07:54 | Internal Med Progress Note ---
Hospitalist Progress Note - Encounter Date of Encounter: 05/23/19 Time of Encounter: 07:54 - Subjective Interval History: No acute events overnight - Exam Vitals: Temp Pulse Resp BP Pulse Ox 97.7 F 71 16 112/56 95 05/23/19 03:23 05/23/19 05:38 05/23/19 03:23 05/23/19 05:38 05/23/19 03:23 Exam: Gen. NAD CVS. S1 S2 WNL Resp. CTAB GI. Soft, NT, ND, +BS Ext. 2+ pulses [employer]. GCS 15/15 - Assessment and Plan (1) Syncope and collapse Current Visit: Yes Status: Acute Assessment and Plan: Pt comes in with syncopal episode this am with persistent dizziness Unclear etiology. MRI shows normal pressure hydrocephalus. CTA head shows no stenosis Seen by neurology who's impression is that vertigo is of peripheral etiology Improving on IV fluids and meclizine. Obtain PT/OT recs (2) Normal pressure hydrocephalus Current Visit: Yes Status: Acute Assessment and Plan: See #1 (3) Dyslipidemia Current Visit: Yes Status: Acute Assessment and Plan: Resume home meds Code(s): E78.5 - Hyperlipidemia, unspecified (4) Hypothyroidism Current Visit: Yes Status: Acute Assessment and Plan: Resume levothyroxine (5) DVT prophylaxis Current Visit: Yes Status: Acute Assessment and Plan: Heparin sc - Time Spent with Patient Total time spent is greater than 50% in coordination of care (as documented) at patient's floor/unit and/or counseling patient: Internal Medicine: Result - Labs CBC & Chem 7: 05/23/19 04:52 05/23/19 04:52 Labs: Short CBC 05/22/19 05/23/19 Range/Units 10:41 04:52 WBC 13.4 H 10.6 (4.3-11.1) K/mcL Hgb 14.6 14.1 (11.5-15.4) g/dL Hct 44.7 43.3 (35.3-44.9) % Plt Count 267 269 (140-400) K/mcL Neutrophils # 11.5 H 7.5 (1.6-8.9) K/mcL BMP 05/22/19 05/23/19 10:41 04:52 Sodium 140 144 Potassium 3.9 4.0 Chloride 105 106 Carbon Dioxide 28 29 BUN 11 12 Creatinine 0.83 0.88 Glucose 122 H 98 Calcium 8.9 9.2 Cardiac Enzymes 05/22/19 Range/Units 10:41 Troponin I < 0.03 (< 0.04) ng/mL Urine 05/22/19 Range/Units 11:34 Urine Color Yellow (Yellow) Urine Clarity Clear (Clear) Urine pH 7.5 (5.0-8.0) pH Units Ur Specific [place] 1.016 (1.010-1.025) Urine Protein 30 H (Neg-Trace) mg/dL Urine Glucose (UA) Normal (Normal) mg/dL - Impressions Impressions Head CT 05/22/19 10:32 IMPRESSION: 1. Parenchymal volume loss and sequela of moderate chronic microvascular ischemic changes. 2. Ventriculomegaly which is out of proportion to the degree of brain parenchymal volume loss, raise the possibility of normal pressure hydrocephalus. D/ / Sandi Bowling MD / Sandi Bowling MD Interpreting Provider: Sandi Bowling MD Brain MRI 05/22/19 11:41 IMPRESSION: 1. No acute intracranial abnormality. 2. Moderate chronic white matter microvascular ischemic changes. 3. Ventriculomegaly disproportionate to the degree of parenchymal volume loss as can be seen in the setting of normal pressure hydrocephalus. D/ / Connor Leggett / Connor Leggett Interpreting Provider: Connor Leggett Head CTA 05/22/19 16:04 IMPRESSION: 1. No acute arterial abnormality or hemodynamically significant arterial stenosis in the head or neck. 2. Mild emphysema. 3. Subcentimeter incidental thyroid nodules likely benign are. No follow-up imaging is recommended. Reference: J Am Matthew Radiol. 2015 Oct;12(2): 143-50 D/ / Connor Leggett / Connor Leggett Interpreting Provider: Connor Leggett Neck CTA 05/22/19 16:04 IMPRESSION: 1. No acute arterial abnormality or hemodynamically significant arterial stenosis in the head or neck. 2. Mild emphysema. 3. Subcentimeter incidental thyroid nodules likely benign are. No follow-up imaging is recommended. Reference: J Am Matthew Radiol. 2015 Oct;12(2): 143-50 D/ / Connor Leggett / Connor Leggett Interpreting Provider: Connor Leggett Chest X-Ray 05/22/19 17:44 IMPRESSION: Suboptimal exam, AP portable and expiratory phase. No definite radiographic evidence of acute cardiopulmonary disease. Follow-up full inspiration PA and lateral chest may be useful for better characterization of pulmonary findings. D/ / Shawn Cortez / Shawn Cortez Interpreting Provider: Shawn Cortez Consult Discharge Plan - Plan Referrals: Gerald Peralta MD [Primary Care Provider] - (4) Hypothyroidism Qualifiers: Qualified Code(s): E03.9 - Hypothyroidism, unspecified
[2019-05-23] MEDS: Cholecalciferol (D-3) 1,000 UNIT (25MCG) TABLET PO SCH (08:24)
[2019-05-23] MEDS: SUMAtriptan succinate 50 MG TABLET PO PRN (08:28)
--- NOTE | 2019-05-23 14:48 | Neurology Progress Note ---
Date of Encounter: 05/23/19 Time of Encounter: 14:46 Assessment and Plan (1) VBI (vertebrobasilar insufficiency) Current Visit: Yes Status: Acute Ruled out with negative neuroimaging CTA head and neck negative for flow limiting stenosis Brain MRI negative for CVA of posterior fossa In regards to ventriculomegaly I am doubtful that she has NPH She denies any AMS, confusion, urinary incontinence and magnetic gait -consider labrynthitis as cause of dizziness; consider ENT c/s outpatient Neurology will sign off; okay to d/c at discretion of primary team No need for neurology f/u (2) Normal pressure hydrocephalus Current Visit: Yes Status: Acute Subjective Principal diagnosis: Dizziness, nausea, vomiting, diplopia; rule out RETORT FURNACE HELPER, Interval history: Seen in follow-up for dizziness, weakenss, N/V and diplopia r/o VBI and NPH. Continues to have dizziness and weakness, but diplopia, N/V have resolved. Urine cultures growing GNR; relayed to IM team. Discussed imaging findings. She denies any new concerns. Objective - Constitutional Vitals: Temp Pulse Resp BP Pulse Ox 98.2 F 72 19 130/69 93 05/23/19 10:46 05/23/19 10:46 05/23/19 10:46 05/23/19 10:46 05/23/19 10:46 Exam: Exam: Examination: General Examination: *CONSTITUTIONAL: Alert and oriented x3, no acute distress *GENERAL APPEARANCE OF PATIENT elderly female who appears healthy and well groomed *EYES: pupils equal, round, reactive to light and accommodation, conjunctiva clear without masses or ulcerations, fundi normal. *CARDIOVASCULAR: no peripheral edema, distal temperature normal, dorsalis pedis pulses normal. Refer to vital signs * MUSCULOSKELETAL: *GAIT AND STATION: Refused by patient *ASSESSMENT OF MUSCLE STRENGTH IN THE UPPER AND LOWER EXTREMITIES bilateral deltoid, bicep, tricep, regional sales engineer strength, hip flexors ,anterior tibialis, dorsoflexion of the foot 4/5 *MUSCLE TONE IN THE UPPER AND LOWER EXTREMITIES normal. No abnormal movements, fasciculations or atrophy identified. Neurological: *ORIENTATION to person, situation, time and place *LANGUAGE AND FUNCTION no significant aphasia or dysarthia was noted. *ATTENTION AND CONCENTRATION are normal *LANGUAGE FUNCTION no significant aphasia or dysarthia was noted. *FUND OF KNOWLEDGE aware of current events, past history, vocabulary *MENTAL attention span and concentration normal. *CN II optic fundi were normal, no papilledema noted. *CN III,IV, PERRLA extraocular eye movements were full, no nystagmus and no ptosis noted. *CN V shows normal sensation and jaw opens symmetrically. *CN VII shows normal facial movement symmetrically, upper and lower bilaterally. *CN VIII shows no significant hearing loss on exam *CN IX-X palate elevated symmetrically *CN XI normal strength in the sternocleidomastoid muscles, symmetrical shoulder shrugging. *CN XII tongue protruded in the midline, with normal strength and movement. *SENSORY EXAMINATION light touch intact *REFLEXES: deep tendon reflexes were normal and symmetrical , grade 2/4 diffusely, no pathological reflexes were noted. *CEREBELLAR TESTING normal finger to nose, heel/knee/ramirez *PAIN LEVEL 0/10 Results - Laboratory Findings CBC and BMP: 05/23/19 04:52 05/23/19 04:52 Abnormal lab findings: Abnormal lab results WBC 13.4 K/mcL (4.3-11.1) H 05/22/19 10:41 MPV 9.2 fL (9.4-12.4) L 05/23/19 04:52 Neutrophils # 11.5 K/mcL (1.6-8.9) H 05/22/19 10:41 Glucose 122 mg/dL (70-105) H 05/22/19 10:41 Urine Protein 30 mg/dL (Neg-Trace) H 05/22/19 11:34 Ur Leukocyte Esterase Trace (Negative) H 05/22/19 11:34 Urine Microscopic RBC 3-5 per hpf (0-3) H 05/22/19 11:34 Urine Microscopic WBC 3-5 per hpf (0-3) H 05/22/19 11:34 Ur Squamous Epith Cells Many per lpf (None-Few) H 05/22/19 11:34 Ur Culture Indicated? YES (NO) A 05/22/19 11:34 Consult Discharge Plan - Plan Referrals: Gerald Peralta MD [Primary Care Provider] -
[2019-05-23] MEDS: cefTRIAXone 1,000 MG in Water for inj. (sterile) 10 ML IVP SCH (17:32)
[2019-05-23] MEDS: predniSONE 20 MG TABLET PO SCH (17:33)
[2019-05-23] MEDS ORDERED: Ibuprofen 600 MG TABLET PO ONE (23:27)
[2019-05-24] MEDS: 0.9 % Sodium Chloride 1,000 ML IVC SCH ×3 (01:12→09:06)
[2019-05-24] MEDS: cefTRIAXone 1,000 MG in Water for inj. (sterile) 10 ML IVP SCH (09:05)
[2019-05-24] MEDS: predniSONE 20 MG TABLET PO SCH (09:05)
[2019-05-24] MEDS: Cholecalciferol (D-3) 1,000 UNIT (25MCG) TABLET PO SCH (09:05)
[2019-05-24] MEDS: SUMAtriptan succinate 50 MG TABLET PO PRN (09:17)
--- NOTE | 2019-05-24 09:17 | Discharge Summary ---
Date of Encounter: 05/24/19 Time of Encounter: 10:00 - Discharge Diagnosis (1) Syncope and collapse Priority: Primary Status: Acute Assessment and Plan: 73 year old female with pmh of hypothyroidism, dyslipidemia presenting with complaints of severe dizziness this am and feeling like she was going to pass out. Patients says she has had chronic dizziness in the past but nothing to this severity. She got up at 6.30 am to use the bathroom and on walking a few feet she immediately felt like she was going to black out. She had to be helped to her feet by her as she could barely support her own weight. She was able to walk back to her bed and has been feeling persistently dizzy since. Particularly when sitting upright or standing up. She denies any sensation of the room spinning around her . She denies any fevers or chills or shortness of breath. She came in with syncopal episode with persistent dizziness of unclear etiology. MRI shows normal pressure hydrocephalus but she has no classic symtoms such as incontinence and gait disturbance. CTA head shows no stenosis. Seen by neurology who's impression is that vertigo is of peripheral etiology with labyrinthitis as a possible culprit. Urine cultures also grew e. Coli. She was treated for UTI and labyrinthitis. She improved on IV fluids, ceftriaxone and steroids. She will complete a 10 day course of steroids and f/u outpatient with neurology and ENT (2) Normal pressure hydrocephalus Priority: Primary Status: Acute (3) Dyslipidemia Priority: Primary Status: Acute Code(s): E78.5 - Hyperlipidemia, unspecified (4) Hypothyroidism Priority: Primary Status: Acute Qualifiers: Qualified Code(s): E03.9 - Hypothyroidism, unspecified (5) DVT prophylaxis Priority: Primary Status: Acute Hospital course: Ms. Dumont is a 73 year old female - Time Spent with Patient Total time spent providing and/or coordinating discharge services: - Discharge Medications Prescriptions: New Meclizine [Antivert] 25 mg PO Q6H PRN #60 tablet PRN Reason: Dizziness predniSONE [PredniSONE] 60 mg PO DAILY 10 Days #22 tablet Cefdinir [Omnicef] 300 mg PO BID 3 Days #6 capsule Continued Omeprazole [PriLOSEC] 40 mg PO DAILY Cholecalciferol (D-3) [Vitamin D] 5,000 unit PO DAILY Levothyroxine [Synthroid] 88 mcg PO QAM Albuterol Sulfate [Ventolin Hfa] 2 puff IH Q4H Colesevelam [Welchol] 1,875 mg PO BIDWM SUMAtriptan Succinate [Imitrex] 100 mg PO DAILY PRN PRN Reason: Migraine Headache Discontinued Meclizine HCl [Verticalm] 25 mg PO DAILY PRN PRN Reason: Dizziness Home Medications: Cholecalciferol (D-3) [Vitamin D] 5,000 unit PO DAILY 10/18/16 [History] Levothyroxine [Synthroid] 88 mcg PO QAM 10/18/16 [History] Omeprazole [PriLOSEC] 40 mg PO DAILY 10/18/16 [History] Albuterol Sulfate [Ventolin Hfa] 2 puff IH Q4H 05/22/19 [History] Colesevelam [Welchol] 1,875 mg PO BIDWM 05/22/19 [History] SUMAtriptan Succinate [Imitrex] 100 mg PO DAILY PRN 05/22/19 [History] Cefdinir [Omnicef] 300 mg PO BID 3 Days #6 capsule 05/24/19 [Rx] Meclizine [Antivert] 25 mg PO Q6H PRN #60 tablet 05/24/19 [Rx] predniSONE [PredniSONE] 60 mg PO DAILY 10 Days #22 tablet 05/24/19 [Rx] Allergies/Adverse Reactions: Allergy/AdvReac Type Severity Reaction Status Date / Time influenza virus vaccine, Allergy See Verified 10/19/17 10:07 specific Comments Ziyfger-Gvr-Rge Reductase Allergy See Verified 10/19/17 10:07 Inhibitor Comments [Statins] Date of admission: 05/22/19 17:24 Primary care physician: Gerald Peralta MD Consults: 05/22/19 15:03 Consult to Neurology [CONS] Stat Consulting Provider: Neurology [facility] Reason for Consult: normal pressure hydrocephalus with nausea, vomiting, dizziness, incontinence Time Notified: 15:03 Call Completed: Yes 05/23/19 08:33 Consult to Occupational Therapy [CONS] Routine Comment: Evaluate, develop and implement POC Reason for Consult: weakness Does patient have active BEDREST order?: No Is patient medically & hemodynamically stable?: Yes Patient assessed for mobility or mobilized this visit?: No Consult to Physical Therapy [CONS] Routine Comment: Evaluate, develop and implement POC Reason for Consult: weakness Does patient have active BEDREST order?: No Is patient medically & hemodynamically stable?: Yes Patient assessed for mobility or mobilized this visit?: No - Constitutional Vitals: Temp Pulse Resp BP Pulse Ox 97.5 F L 73 16 118/75 94 05/24/19 06:22 05/24/19 06:22 05/24/19 06:22 05/24/19 06:22 05/24/19 06:22 Exam: Gen. NAD CVS. S1 S2 WNL Resp. CTAB GI. Soft, NT, ND, +BS Ext. 2+ pulses BACK [employer] [place] LINE. GCS 15/15 - Patient Status Disposition: Home, Self-Care Condition: Good - Discharge Instructions Instructions: Syncope (DC), Dizziness (GEN) Follow Up With: Gerald Peralta MD [Primary Care Provider] - 05/28/19 2:00 pm Additional Instructions: Home health has been set up through [facility]. They will contact you with a date and time to complete admission. If you need to contact them please call #[phone] or #[phone]. Follow-up appointments: If there is not an appointment listed below, please call your physician and guevara arroyo a follow-up appointment. If you have congestive heart failure and your symptoms return, make an appointment with your physician. Medication List: Carry an up to date list of medications you are taking at all time. We have given you an updated medication list including any new medications that you have been prescribed. Please provide that list to your primary provider Symptoms: If your condition changes or you experience any of the following symptoms, notify your physician immediately: Unusual or worsening pain, fever, persistent nausea and vomiting, bleeding, increase in swelling (especially in your legs), sudden weight gain, extreme dizziness, chest pain, increased drainage or redness from a wound or incision. Go to the emergency department if you experience a problem with breathing. Weights: If you have a history of swelling or shortness of breath, weigh yourself daily and notify your physician if you have a weight gain of two or more pounds in one day or 5 or more pounds in a week. If you experience any of the warning signs for stroke: Sudden numbness or weakness of the face, arm or leg; especially on one side of the body, sudden confusion, trouble speaking or understanding, sudden trouble seeing in one or both eyes, sudden trouble walking, dizziness, loss of balance or coordination, sudden sever headache with no cause; Call 911 or go to the emergency room. Stroke is a medical emergency. Some risk factors for stroke: Age, cigarette smoking, diabetes, excessive alcohol consumption, family history, high blood pressure, overweight, physical inactivity, prior stroke, heart attack, diagnosis of carotid artery stenosis or other artery disease. If you smoke, STOP: Smoking or tobacco use significantly increases your risk of heart and lung disease. Your chance of disease greatly increases if you continue to smoke. For more information, call the [place] tobacco quit line for smoking cessation 8-368-PKVS-NOW ( )
[2019-05-24 10:41] VITALS: BP 137/89
--- NOTE | 2019-05-24 11:39 | Physician Discharge Referral ---
Home Health/Hosp Referral Info Transfer to: Home Health - Diagnosis (1) Syncope and collapse Priority: Primary Status: Acute (2) Normal pressure hydrocephalus Priority: Primary Status: Acute (3) Dyslipidemia Priority: Primary Status: Acute (4) Hypothyroidism Priority: Primary Status: Acute (5) DVT prophylaxis Priority: Primary Status: Acute - Respiratory Orders Smoking Cessation: Smoking cessation has been advised. For more information, call the [place] Tobacco Quit Line at 9-601-FJYY-NOW. - Diet/Nutrition Diet/Nutrition Orders: Cardiac - Activity Activity Orders: Ambulate - Services Needed Following services are medically necessary services: Nursing, Home Health Aide, Physical Therapy - Transfer Medications Prescriptions: Meclizine [Antivert] 25 mg PO Q6H PRN #60 tablet PRN Reason: Dizziness Cefdinir [Omnicef] 300 mg PO BID 3 Days #6 capsule predniSONE [PredniSONE] 60 mg PO DAILY 10 Days #22 tablet Home Medications: Cholecalciferol (D-3) [Vitamin D] 5,000 unit PO DAILY 10/18/16 [History] Levothyroxine [Synthroid] 88 mcg PO QAM 10/18/16 [History] Omeprazole [PriLOSEC] 40 mg PO DAILY 10/18/16 [History] Albuterol Sulfate [Ventolin Hfa] 2 puff IH Q4H 05/22/19 [History] Colesevelam [Welchol] 1,875 mg PO BIDWM 05/22/19 [History] SUMAtriptan Succinate [Imitrex] 100 mg PO DAILY PRN 05/22/19 [History] Cefdinir [Omnicef] 300 mg PO BID 3 Days #6 capsule 05/24/19 [Rx] Meclizine [Antivert] 25 mg PO Q6H PRN #60 tablet 05/24/19 [Rx] predniSONE [PredniSONE] 60 mg PO DAILY 10 Days #22 tablet 05/24/19 [Rx] Allergies/Adverse Reactions: Allergy/AdvReac Type Severity Reaction Status Date / Time influenza virus vaccine, Allergy See Verified 10/19/17 10:07 specific Comments Pkdhqbc-[id number]-Tif Reductase Allergy See Verified 10/19/17 10:07 Inhibitor Comments [Statins] Certification: Further, I certify that my clinical findings support that this patient is homebound (i.e. absences from home require considerable and taxing effort and are for medical reasons or restorationism services or infrequently or short duration when for other reasons) because: Homebound Reason: Patient requires assistance of a person or device to safely leave home Attestation: My signature below is to certify that this patient is under my care and that I, or nurse practitioner, or a physician's gallery assistant working with me, has a [id number] encounter with this patient.
== END 2019-05-24 13:20 | disposition home or self-care (01) ==
LOC: 3BNU 10:15 → EMEROOARM 10:15 → 3BNU 18:37
PROVIDERS: ADMIT Internal Medicine; ATTEND Internal Medicine